=== PATIENT | female | born 1960 | race Caucasian/White ===

== ENCOUNTER 2017-05-30 12:05 | Emergency (ER) | payer OTHER ==
[~2017-05-30] VITALS: Ht 167.6 cm; Wt 61.6 kg
[2017-05-30] MEDS ORDERED: ONDANSETRON 2MG/ML, 2ML IVPush ONE (13:00)
[2017-05-30] MEDS ORDERED: KETOROLAC 30 MG/1 ML IVPush ONE (13:00)
[2017-05-30] MEDS ORDERED: SODIUM CHLORIDE FLUSH 10ML SYR IVF ONE (13:00)
[2017-05-30] MEDS ORDERED: SODIUM CHLORIDE 0.9% 1,000ML IV ONE (13:00)
[2017-05-30] MEDS ORDERED: KETOROLAC 30 MG/1 ML ONE (13:10)
[2017-05-30] MEDS ORDERED: ONDANSETRON 2MG/ML, 2ML ONE (13:10)
[2017-05-30 14:21] LABS: BLOOD UREA NITROGEN 14 mg/dL (7-18)
[2017-05-30 15:03] VITALS: BP 126/64
== END 2017-05-30 15:05 | disposition home or self-care (01) ==
LOC: ED 14:50
DX: S39.012A Strain of muscle, fascia and tendon of lower back, initial encounter (principal); S29.012A Strain of muscle and tendon of back wall of thorax, initial encounter; Z90.710 Acquired absence of both cervix and uterus; X58.XXXA Exposure to other specified factors, initial encounter; Y93.89 Activity, other specified; Y92.89 Other specified places as the place of occurrence of the external cause; Y99.9 Unspecified external cause status
CPT/HCPCS: 36415; 74176; 80048; 81003; 82040; 85025; 96361; 96374; 96375; 99285; J1885; J2405; J7030